=== PATIENT | male | born 1960 | race African-American/Black ===

== ENCOUNTER 2017-11-02 08:47 | Day surgery (SDC) ==
[2017-11-02] MEDS: BETADINE OPTH PREP OP PRN ×2 (10:00→10:59)
[2017-11-02] MEDS: TETRACAINE 0.5% UNIT-DOSE OP PRN ×3 (10:00→11:13)
[2017-11-02] MEDS: CYCLOGYL 2% OPTH OP PRN ×3 (10:01→10:11)
[2017-11-02] MEDS ORDERED: ZOFRAN 4 MG/2 ML IVP ONE (10:07)
[2017-11-02] MEDS ORDERED: BRIMONIDINE TARTRATE 0.2% OPTH SOL OP PRN (10:07)
[2017-11-02] MEDS ORDERED: LIDOCAINE 1% 20 ML MDV ID STA (10:07)
[2017-11-02] MEDS ORDERED: SUBLIMAZE ONE (11:05)
[2017-11-02] MEDS ORDERED: VERSED ONE (11:05)
[2017-11-02] MEDS: LIDOCAINE 1%/PHENYLEPHRINE 1.5% BSS (SURGERY) INTRAOCULA ONE ×2 (11:07→11:13)
[2017-11-02] MEDS: BSS WITH EPINEPHRINE OP ONE ×2 (11:07→11:13)
[2017-11-02] MEDS: DEX-MOXI-KETOR OPTH INJ 1/0.5/0.4 MG/ML IO ONE ×2 (11:07→11:13)
[2017-11-02 13:44] VITALS: BP 126/67
[2017-11-02 14:03] VITALS: TEMP 98.6
== END 2017-11-02 12:00 | disposition home or self-care (01) ==
LOC: SURG 08:47
PROVIDERS: ATTEND Ophthalmology
DX: H25.813 Combined forms of age-related cataract, bilateral (principal)

== ENCOUNTER 2017-11-17 11:18 | Day surgery (SDC) ==
[2017-11-17] MEDS: TETRACAINE 0.5% UNIT-DOSE OP PRN ×2 (14:07→14:30)
[2017-11-17] MEDS: BETADINE OPTH PREP OP PRN ×2 (14:07→14:30)
[2017-11-17] MEDS: CYCLOGYL 2% OPTH OP PRN ×3 (14:08→14:18)
[2017-11-17] MEDS ORDERED: ZOFRAN 4 MG/2 ML IVP ONE (14:15)
[2017-11-17] MEDS ORDERED: BSS WITH EPINEPHRINE OP ONE (14:15)
[2017-11-17] MEDS ORDERED: DEX-MOXI-KETOR OPTH INJ 1/0.5/0.4 MG/ML IO ONE (14:15)
[2017-11-17] MEDS ORDERED: LIDOCAINE 1%/PHENYLEPHRINE 1.5% BSS (SURGERY) INTRAOCULA ONE (14:15)
[2017-11-17] MEDS ORDERED: LIDOCAINE 1% 20 ML MDV ID STA (14:15)
[2017-11-17] MEDS ORDERED: BRIMONIDINE TARTRATE 0.2% OPTH SOL OP PRN (14:15)
[2017-11-17] MEDS ORDERED: VERSED ONE (14:45)
[2017-11-17] MEDS ORDERED: SUBLIMAZE ONE (14:45)
[2017-11-17 17:39] VITALS: TEMP 98.5
[2017-11-19 13:34] VITALS: BP 112/67
== END 2017-11-17 15:30 | disposition home or self-care (01) ==
LOC: SURG 11:18
PROVIDERS: ATTEND Ophthalmology
DX: H25.812 Combined forms of age-related cataract, left eye (principal)